=== PATIENT | male | born 1980 | race African-American/Black ===

== ENCOUNTER 2023-11-12 18:22 | Emergency (ER) | payer OTHER, SELFPAY ==
--- NOTE | ~2023-11-12 | XR_ITS ---
EXAM: XR hip BI 2V w AP pelvis DATE: 11/12/2023 21:34 HISTORY: pain; wt loss . COMPARISON: None available. FINDINGS: Normal mineralization. No fracture or dislocation. No lytic or blastic lesion. Mild bilate ral hip osteoarthritis. Mild scattered pelvic enthesopathy. No erosion or periosteal change. Soft tis sues within normal limits. IMPRESSION: No acute osseous finding in the pelvis or bilateral hips. Reviewed, dictated and finalized at location K.
--- NOTE | ~2023-11-12 | XR_ITS ---
EXAM: XR shoulder RT min 2V DATE: 11/12/2023 21:34 HISTORY: reported pain to extracorporeal technician . COMPARISON: None available. FINDINGS: Normal mineralization. No fracture or dislocation. No lytic or blastic lesion. Mild degene rative change at the AC joint and glenohumeral joint. Acromial tip enthesopathy. No erosion or perios teal change. Soft tissues within normal limits. IMPRESSION: No acute osseous finding in the right shoulder. Reviewed, dictated and finalized at location K.
[2023-11-12 18:48] VITALS: BP 137/89; PULSE 63; RESP 20; TEMP 36.2; O2SAT 100
[2023-11-12 21:59] LABS: Basophils Absolute Auto 0.1 K/mm3 (0.0-0.1); Basophils Percent Auto 0.5 % (0.2-1.2); Eosinophils Absolute Auto 0.2 K/mm3 (0-0.3); Eosinophils Percent Auto 1.3 % (0-4.4); Hematocrit 46.2 % (42.0-52.0); Hemoglobin 15.8 g/dL (14.0-18.0); Immature Granulocyte Absolute 0.03 K/mm3 (0.00-0.031); Immature Granulocyte Percent A 0.3 % (0-0.5); Lymphocytes Absolute Auto 4.85 K/mm3 (0.9-3.2); Lymphocytes Percent Auto 43.2 % (18.3-44.2); Mean Corpuscular HGB Conc 34.2 g/dl (32-36); Mean Corpuscular Hemoglobin 32.4 pg (26-34); Mean Corpuscular Volume 94.7 fl (80-100); Mean Platelet Volume 11.2 fl (7.4-10.4); Monocytes Absolute Auto 0.8 K/mm3 (0.1-0.6); Monocytes Percent Auto 6.7 % (2.6-8.5); Neutrophils Absolute Auto 5.4 K/mm3 (1.3-6.7); Platelet Count Result 150 k/mm3 (150-375); Red Blood Count 4.88 M/mm3 (4.6-6.20); Red Cell Distribution Width 13.2 % (11.5-14.5); White Blood Count 11.2 K/mm3 (4.5-10.0)
[2023-11-12 22:03] LABS: Appearance Urine Clear (Clear); Bacteria Urine None Seen /hpf; Bilirubin Urine Negative (Negative); Blood Urine Negative (Negative); Color Urine Dark Yellow (Yellow); Glucose Urine UA Negative (Negative); Ketones Urine Trace mg/dL (Negative); Leukocyte Esterase Ur Trace LEU/UL (Negative); Nitrate Urine Negative (Negative); Non Pathogenic Casts 0-2; Protein Urine Negative (Negative); RBC Urine 0-2 /hpf (0-2); Specific Grav Ur 1.019 (1.001-1.035); Squamous Epithelial Cell Urine None Seen /hpf (Few); WBC Urine 0-5 /hpf (0-3); pH Urine 6.5 (5.0-9.0)
[2023-11-12 22:05] LABS: Add Urine Microscopic? YES
[2023-11-12 22:12] LABS: Alanine Aminotransferase 14 U/L (6-50); Albumin Level 4.2 g/dL (3.5-5.1); Alkaline Phosphatase 48 U/L (38-126); Anion Gap 8 mmol/L (4-12); Aspartate Amino Transferase 21 U/L (17-59); Bilirubin,Total 0.5 mg/dL (0.2-1.3); Blood Urea Nitrogen 6 mg/dL (9-20); Calcium 8.9 mg/dL (8.4-10.2); Carbon Dioxide 33 mmol/L (22-30); Chloride 97 mmol/L (98-107); Creatine Kinase 60 U/L (55-170); Estimated CRCL calculation 109 ml/min; Estimated Glomerular Filt Rate > 60; Glucose 107 mg/dL (65-110); Potassium 3.5 mmol/L (3.4-5.0); Sodium 138 mmol/L (137-145)
--- NOTE | 2023-11-12 22:23 | ED.GENADULT ---
HPI - General Adult General Chief complaint: Unspecified Stated complaint: just not feeling good Time Seen by Provider: 11/12/23 20:31 Source: patient and family (, daughter) Mode of arrival: ambulatory Limitations: no limitations History of Present Illness HPI narrative: Patient presents with report of bilateral hip pain, low back pain, and neck pain and body aches as well as myalgias since April. 4 out of 10 in severity. Had been trying TYlenol and ibuprofen that was not helping. Has been self medicating with something called wild lettuce which he states is supposed to help. He states it is piriformis pain. No fevers. He had been having night sweats but not lately. Denies marijuana use. Last time he had blood work was 11/[place]. Has not seen a primary care physician; doesn't have one in the area. Reports 40-50lbs of unintentional weight loss. Has lost his appetite. No shortness of breath, chest pain, headache, abdominal pain. He notes his HA1C had previously been somewhat elevated and he was told he had prediabetes; had been prescribed 1000mg BID metformin but not taking as ran out without refills. Thinks he was told he either had HTN or HLD but unsure which or if either. Patient's daughter had been evaluated as a patient in the ED as well for an unrelated issue. . Related Data Allergies Allergy/AdvReac Type Severity Reaction Status Date / Time No Known Allergies Allergy Verified 11/12/23 18:48 PMFSH Past Medical History Medical History Pre-diabetes Exam Narrative: GENERAL: Well-appearing, well-nourished, and in no acute distress. HEAD: Normocephalic, atraumatic. EYES: Non injected, non icteric ENT: Nares clear, no rhinorrhea or epistaxis. NECK: Supple. CHEST: Speaking in full sentences. No respiratory distress. HEART: Regular rate and rhythm. . ABDOMEN: Soft, nondistended. EXTREMITIES/BACK: Normal range of motion. No edema. No TTP of midline C/T/L spine. SKIN: Warm, dry, no rash. NEURO: No focal deficits. Alert and oriented x3. Ambulates with steady gait. PSYCH: Normal mood and affect. Course Vital Signs Vital signs: Vital Signs Temperature 97.1 F L 11/12/23 18:48 Pulse Rate 63 11/12/23 18:48 Respiratory Rate 20 11/12/23 18:48 Blood Pressure 137/89 11/12/23 18:48 Pulse Oximetry 100 11/12/23 18:48 Oxygen Delivery Room Air 11/12/23 18:48 Temperature 97.9 F 11/12/23 22:36 Pulse Rate 67 11/12/23 22:36 Respiratory Rate 20 11/12/23 22:36 Blood Pressure 123/87 11/12/23 22:36 Pulse Oximetry 100 11/12/23 22:36 Oxygen Delivery Room Air 11/12/23 18:48 Medical Decision Making MDM Narrative Medical decision making narrative: Patient presents with generalized body aches/myalgias as well as hip/low back/neck pain. Does not have a PCP/regular care. Previously diagnosed with prediabetes but unable to currently take metformin as no Rx. In the ED he is afebrile with VS within normal limits. Unremarkable physical exam. He does indicate to Xray take some shoulder pain so this imaging added to work up. Work up generally unremarkable except HA1C is elevated at a level that confirms prediabetes. Will discharge with Rx for metformin and follow up referral for PCP. Differential Diagnosis Differential Diagnosis: generalized MSK pain; multiple myeloma or other malignanc possibly with metastases; acute viral syndrome; rhabdomyolysis; thyroid dysfunction; diabetes/prediabetes possibly with complication Vital Signs Vital Signs: Vital Signs Temperature 97.1 F L 11/12/23 18:48 Pulse Rate 63 11/12/23 18:48 Respiratory Rate 20 11/12/23 18:48 Blood Pressure 137/89 11/12/23 18:48 Pulse Oximetry 100 11/12/23 18:48 Oxygen Delivery Room Air 11/12/23 18:48 Temperature 97.9 F 11/12/23 22:36 Pulse Rate 67 11/12/23 22:36 Respiratory Rate 20 11/12/23 22:36 Blood Pressure 123/
[2023-11-12 22:36] VITALS: BP 123/87; PULSE 67; RESP 20; TEMP 36.6; O2SAT 100
[2023-11-12 22:37] LABS: Influenza A QL RT-PCR Negative (Negative); Influenza B QL RT-PCR Negative (Negative); RSV RNA, RT-PCR Negative (Negative); SARS-CoV-2 RNA PCR Negative (Negative)
== END 2023-11-12 23:20 | disposition home or self-care (01) ==
PROVIDERS: Emergency Provider Student in an Organized Health Care Education/Training Program
DX: R73.03 Prediabetes (principal); M79.18 Myalgia, other site; M25.511 Pain in right shoulder; R63.4 Abnormal weight loss; Z20.822 Contact with and (suspected) exposure to COVID-19
CPT/HCPCS: 36415; 73030; 73521; 80053; 81001; 82550; 83036; 84443; 85025; 87637; 99284